=== PATIENT | female | born 1955 | race Caucasian/White ===

== ENCOUNTER 2018-08-13 02:09 | Emergency (ER) | payer OTHER ==
[~2018-08-13] VITALS: Ht 160 cm; Wt 72.7 kg
[~2018-08-13 02:09] MED LIST: ALBU8HFA IH; OMEP20 PO
[2018-08-13] MEDS ORDERED: LORazepam 0.5 MG TABLET PO ONE (05:15)
[2018-08-13 06:21] VITALS: BP 127/83
== END 2018-08-13 06:31 | disposition home or self-care (01) ==
LOC: EMS 02:10
DX: F41.9 Anxiety disorder, unspecified (principal); J45.909 Unspecified asthma, uncomplicated; K21.9 Gastro-esophageal reflux disease without esophagitis; Z90.710 Acquired absence of both cervix and uterus; Z88.0 Allergy status to penicillin; Z79.899 Other long term (current) drug therapy
CPT/HCPCS: 93005; 99283